=== PATIENT | male | born 1970 | race Hispanic/Latino ===

== ENCOUNTER 2019-06-26 05:53 | Day surgery (SDC) | payer OTHER ==
[2019-06-25 14:14] VITALS: BP 137/79
[2019-06-25 14:27] LABS: BASOPHILS % (AUTO) 0.4 % (0.0-5.0); EOSINOPHILS % (AUTO) 2.4 % (0.0-8.0); HEMATOCRIT 43.5 % (42-54); LYMPHOCYTES % (AUTO) 19.1 % (21.0-51.0); MEAN CORPUSCULAR HEMOGLOBIN 30.7 pg (27.0-33.0); MEAN CORPUSCULAR HGB CONC 32.4 g/dL (32.0-36.0); MEAN CORPUSCULAR VOLUME 94.6 fL (79-99); MONOCYTES % (AUTO) 11.7 % (3.0-13.0); PLATELET COUNT (AUTO) 299 K/uL (130-400); RED CELL DISTRIBUTION WIDTH 12.8 % (11.0-15.5)
[2019-06-25 14:36] LABS: POTASSIUM 4.1 mmol/L (3.5-5.1)
[2019-06-26] VITALS (17 sets, daily range): BP systolic 110–130; BP diastolic 57–83
[~2019-06-26] VITALS: Ht 172.7 cm; Wt 140.3 kg
[~2019-06-26 05:53] MED LIST: LOSA100T58 PO
[2019-06-26] MEDS ORDERED: LACTATED RINGERS 1000ML 1,000 ML IV ONE (06:24)
[2019-06-26] MEDS ORDERED: BUPIVACAINE/PF 0.25% 30ML VIAL IJ ONE (06:44)
[2019-06-26] MEDS: CEFAZOLIN SODIUM 1 GM VIAL ONE ×2 (07:01→08:00)
--- NOTE | 2019-06-26 07:09 | NUR ---
POTENTIAL FOR INFECTION: SHAVED RIGHT KNEE / RT LEG PER YOANA LALA, FOLLOWED BY WIPING WITH MANUEL: 2% CHLORHEXIDINE GLUCONATE CLOTH PATIENTS PRE-OP SKIN PREP.
[2019-06-26] MEDS ORDERED: LIDOCAINE PF 2% 5ML ABBOJECT ONE (07:42)
[2019-06-26] MEDS ORDERED: SUCCINYLCHOLINE 200MG/10ML SYR ONE (07:42)
[2019-06-26] MEDS ORDERED: PROPOFOL 10 MG/ML 20ML VIAL IV ONE (07:43)
[2019-06-26] MEDS ORDERED: FENTANYL CITRATE PF 50 MCG/1 ML 2ML VIAL ONE (07:43)
[2019-06-26] MEDS ORDERED: MIDAZOLAM HCL 1 MG/ML 2ML VIAL ONE (07:43)
[2019-06-26] MEDS ORDERED: DEXAMETHASONE SOD PHOSPHATE 10MG/ML 1ML VIAL ONE (08:03)
[2019-06-26] MEDS ORDERED: ONDANSETRON HCL 4 MG/2 ML VIAL ONE (08:03)
--- NOTE | 2019-06-26 09:45 | NUR ---
PATIENT ARRIVED FROM PACU VIA STRETCHER BY AXEL REZA. PT AAOX3, RESPIRATIONS UNLABORED, VITAL SIGNS STABLE. DENIES ANY PAIN AT THIS TIME. ASHLEY WRap TO RIGHT KNEE IS DRY AND INTACT. PEDAL PULSES STRONG, PATIENT ABLE TO MOVE TOES AND HAS SENSATION ON BILATERAL LOWER EXTREMITIES. SIDE RAILS UP X2, BED IN LOWEST POSITION, CALL HUERTA IN REACH
--- NOTE | 2019-06-26 10:04 | NUR ---
DISCHARGE INSTRUCTIONS PROVIDED TO PATIENT'S SPOUSE, PRESCRIPTIONS PROVIDED AND INSTRUCTIONS ON INCISION CARE PROVIDED. PT'S SPOUSE VERBALIZED UNDERSTANDING, ALL QUESTIONS ANSWERED. CRUTCHES PROVIDED AND INSTRUCTIONS ON CRUTCHES EXPLAINED.
--- NOTE | 2019-06-26 10:25 | NUR ---
PATIENT DISCHARGED FROM FACILITY VIA WHEELCHAIR BY NURSE. PATIENT ABLE TO TRANSFER HIMSELF INTO PRIVATE VEHICLE DRIVEN BY SPOUSE.
== END 2019-06-26 10:25 | disposition home or self-care (01) ==
LOC: DAH 05:53
PROVIDERS: ATTEND Orthopaedic Surgery
DX: S83.241A Other tear of medial meniscus, current injury, right knee, initial encounter (principal); I10 Essential (primary) hypertension; M94.261 Chondromalacia, right knee; E66.01 Morbid (severe) obesity due to excess calories; Z90.49 Acquired absence of other specified parts of digestive tract; X58.XXXA Exposure to other specified factors, initial encounter; Y93.89 Activity, other specified; Y92.89 Other specified places as the place of occurrence of the external cause; Y99.8 Other external cause status
CPT/HCPCS: 29881; 36415; 80048; 85025; A4215; A4221; A4222; A4223; A4606; A4649 ×2; A4663; A4930; A5120; A6223; A6260; J0330; J0690; J1100; J2001; J2250; J2405; J2704; J3010; J3490; J7120 ×2